=== PATIENT | female | born 1985 | race Caucasian/White ===

== ENCOUNTER 2022-07-14 05:02 | Emergency (ER) | payer SELFPAY ==
[~2022-07-14] VITALS: Ht 162.6 cm; Wt 59.0 kg
[2022-07-14 05:13] VITALS: BP 107/81
--- NOTE | 2022-07-14 05:46 | NUR ---
YEAL 62 FROM HOME FOR OD ON FENTANYL. MOM GAVE AN SPRAY OF NARCAN PRIOR TO EMS ARRIVAL. PATIENT REC'D ZOFRAN IV COPY ROOM TECHNICIAN. A, OX4 AND VERBALLY RESPONSIVE . DENIED SI. PATIENT WAS PLACED IN BED 12 ER ON MONITOR , VSS.
[2022-07-14] MEDS ORDERED: NALO4SPR BNOSTRILS (06:03)
[2022-07-14] MEDS ORDERED: BUPR1FIL SL (06:05)
--- NOTE | 2022-07-14 06:22 | NUR ---
MEDICALLY STABLE FOR D/C. IV removed. Catheter intact and site benign. Pressure and 4x4 applied to site. No bleeding noted.Patient discharged to home in stable condition. Written and verbal after care instructions given. Patient verbalizes understanding of instruction.
== END 2022-07-14 06:24 | disposition home or self-care (01) ==
LOC: ER 05:03
DX: R06.02 Shortness of breath (principal); T40.411A Poisoning by fentanyl or fentanyl analogs, accidental (unintentional), initial encounter; F17.200 Nicotine dependence, unspecified, uncomplicated; Z79.899 Other long term (current) drug therapy; Y92.89 Other specified places as the place of occurrence of the external cause